=== PATIENT | female | born 1990 | race Caucasian/White ===

== ENCOUNTER 2018-02-16 15:59 | Inpatient (IN) | END 2018-02-19 17:40 | disposition home or self-care (01) | DRG 854 ==

== ENCOUNTER 2018-10-03 15:20 | Emergency (ER) | payer OTHER ==
[~2018-10-03] VITALS: Ht 152.4 cm; Wt 59.0 kg
[~2018-10-03 15:20] MED LIST: IBUP-1541 PO
[2018-10-03 15:24] VITALS: Ht 152.4 cm; Wt 59.0 kg
[2018-10-03] MEDS ORDERED: NAPR-985 PO (15:52)
[2018-10-03] MEDS ORDERED: HYDR-4011 PO (15:52)
[2018-10-03] MEDS ORDERED: CLIN300C10 PO (15:52)
--- NOTE | 2018-10-03 15:57 | ERD ---
ER Documentation Chief Complaint Chief Complaint tooth ache HPI 28-year-old female presenting with left-sided tooth pain. Patient had an infection from a year ago and had some dental work done however he still has continued pain. States is been going for the last 3 days. She was seen at the dentist today however had elevated blood pressure so they denied her visit. Patient is taking metoprolol for a heart condition which she is being evaluated for currently. Allergy to penicillin. Surgical history is appendectomy. Social history denies ROS All systems reviewed and are negative except as per history of present illness. Medications Home Meds Active Scripts Naproxen* (Naprosyn*) 500 Mg Tablet, 500 MG PO BID PRN for PAIN AND/OR INFLAMMATION, #30 TAB Prov:ROBBIE WARREN PA-C 10/03/18 Hydrocodone/Acetaminophen (K[place] 5-325 Tablet) 1 Each Tablet, 1 TAB PO Q6H PRN for PAIN, #7 TAB Prov:ROBBIE WARREN PA-C 10/03/18 Clindamycin Hcl* (Clindamycin Hcl*) 300 Mg Capsule, 300 MG PO TID for 10 Days, CAP Prov:ROBBIE WARREN PA-C 10/03/18 Ibuprofen* (Ibuprofen*) 400 Mg Tablet, 400 MG PO Q6H PRN for PAIN, #40 TAB Prov:BENJAMIN UPTON 02/19/18 Allergies Allergies: Coded Allergies: codeine (Verified Allergy, Severe, HIVES,, 02/16/18) Uncoded Allergies: PENICILLIN (Allergy, Severe, 02/16/18) PMhx/Soc History of Surgery: No Anesthesia Reaction: No Hx Neurological Disorder: No Hx Respiratory Disorders: Yes (bronchitis) Hx Cardiac Disorders: No Hx Psychiatric Problems: No Hx Miscellaneous Medical Probl: No Hx Alcohol Use: Yes (few times a week) Hx Substance Use: No Hx Tobacco Use: No Smoking Status: Never smoker FmHx Family History: No diabetes, No coronary disease, No other Physical Exam Vitals Vital Signs Date Temp Pulse Resp B/P (MAP) Pulse Ox O2 O2 Flow FiO2 Time Delivery Rate 10/03/18 98.0 98 18 139/71 99 15:24 (93) Physical Exam GENERAL: The patient is well-appearing, well-nourished, in no acute distress HEENT: Atraumatic. Conjunctivae are pink. Pupils equal, round, and reactive to light. There is no scleral icterus. Tympanic membranes clear bilaterally. Oropharynx clear. Pain with bitting down NECK: C-spine is soft and supple. There is no meningismus. There is no cervical lymphadenopathy. CHEST: Clear to auscultation bilaterally. There are no rales, wheezes or rhonchi. HEART: Regular rate and rhythm. No murmurs, clicks, rubs or gallops. . Procedures/MDM MDM: 28-year-old female presenting with dental pain. I have low suspicion for abscess. Patient likely has dental infection will be treated. Patient is recommended follow-up with the dentist. Patient is told symptoms change or worsen to return immediately to the ER. All questions answered at discharge Departure Diagnosis: Primary Impression: Pain, dental Condition: Stable Patient Instructions: Dental Pain Referrals: [facility] YOU HAVE RECEIVED A MEDICAL SCREENING EXAM AND THE RESULTS INDICATE THAT YOU DO NOT HAVE A CONDITION THAT REQUIRES URGENT TREATMENT IN THE EMERGENCY DEPARTMENT. FURTHER EVALUATION AND TREATMENT OF YOUR CONDITION CAN WAIT UNTIL YOU ARE SEEN IN YOUR DOCTORS OFFICE WITHIN THE NEXT 1-2 DAYS. IT IS YOUR RESPONSIBILITY TO MAKE AN APPOINTMENT FOR FOLOW-UP CARE. IF YOU HAVE A PRIMARY DOCTOR --you should call your primary doctor and schedule an appointment IF YOU DO NOT HAVE A PRIMARY DOCTOR YOU CAN CALL OUR PHYSICIAN REFERRAL HOTLINE AT IF YOU CAN NOT AFFORD TO SEE A PHYSICIAN YOU CAN CHOSE FROM THE FOLLOWING [facility] [address] [facility] [facility] [address] [facility] [address] [facility] [facility] [address] [facility] [facility] [address] [facility]. [facility] [address] [facility]. [facility]. [address] Additional Instructions: FOLLOW UP WITH YOUR PRIMARY CARE PHYSICIAN TOMORROW.Return to this facility if you are not improving as expected. ROBBIE WARREN PA-C Oct 03, 2018 15:57
[2018-10-03 16:03] VITALS: BP 129/76; PULSE 63; RESP 18
== END 2018-10-03 16:05 | disposition home or self-care (01) ==
LOC: FTE 15:20
DX: K08.89 Other specified disorders of teeth and supporting structures (principal)
CPT/HCPCS: 99283